=== PATIENT | male | born 1930 | race African-American/Black ===

== ENCOUNTER 2018-04-07 12:43 | Emergency (ER) | payer MEDICARE ==
[~2018-04-07] VITALS: Ht 193 cm; Wt 117.9 kg
[2018-04-07 12:58] VITALS: BP 163/83
--- NOTE | 2018-04-07 14:14 | PHYS DOC ---
Past Medical History Past Medical History: Diabetes-Type II, Heart Disease, Hypertension Past Surgical History: Other Additional Past Surgical Histo: below rt knee amputation, cabbage Alcohol Use: Occasionally Drug Use: None Adult General Chief Complaint Chief Complaint: SHOULDER INJURY HPI HPI 88-year-old male presents to ER with complaints of left shoulder pain and swelling into the left side of his neck. Patient states he was seen at on Monday and had an x-ray of his left shoulder was told the x-ray was normal limits. Pt reports pain has continued so he came to ER for eval. He reports swelling has increased some since his evaluation. Pt is denying any CP/ palpitations or SOA. Pt reports he does have increased pain with ROM of lt upper extremity and neck. Denies numbness/tingling, GILLESPIE, dizziness, or swelling in upper extremities. Pt reports history of CABG �5 vessel. Review of Systems Review of Systems Constitutional: Denies fever or chills [] Eyes: Denies change in visual acuity, redness, or eye pain [] HENT: Denies nasal congestion or sore throat [] Respiratory: Denies cough or shortness of breath [] Cardiovascular: Denies CP/palpitations GI: Denies abdominal pain, nausea, vomiting, bloody stools or diarrhea [] : Denies dysuria or hematuria [] Musculoskeletal: Denies back pain. Reports lt shoulder/lt side neck pain with swelling in lt side neck Integument: Denies rash or skin lesions [] Neurologic: Denies headache, focal weakness or sensory changes. Denies numbness/ tingling Endocrine: Denies polyuria or polydipsia [] All other systems were reviewed and found to be within normal limits, except as documented in this note. Allergies Allergies Allergies Coded Allergies Type Severity Reaction Last Updated Verified Zolpidem Allergy Intermediate 12/23/13 No Physical Exam Physical Exam Constitutional: Well developed, well nourished, no acute distress, non-toxic appearance. [] HENT: Normocephalic, atraumatic, bilateral ears normal, oropharynx moist, no oral exudates, nose normal. [] Eyes: Pupils equal, no nystagmus, conjunctiva normal, no discharge. [] Neck: Normal range of motion, tender lt lateral neck with swelling into lt clavicle area- no crepitus/palp. deformity; no midline cspine tenderness/palp. deformity; supple, no stridor/gross adenopathy. Trachea midline Cardiovascular: Heart rate regular rhythm, no murmur [] Lungs & Thorax: Bilateral breath sounds clear to auscultation- resp. equal/ nonlabored Abdomen: Bowel sounds normal, soft, no tenderness/obese Skin: Warm, dry, no erythema, no rash. [] Back: No tenderness, no CVA tenderness. [] Extremities: No tenderness, no cyanosis, no clubbing, ROM intact, no edema. [] Neurologic: Alert and oriented X 3, normal motor function, normal sensory function, no focal deficits noted. [] Psychologic: Affect normal, judgement normal, mood normal. [] Current Patient Data Vital Signs EKG EKG [] Radiology/Procedures Radiology/Procedures [] Course & Med Decision Making Course & Med Decision Making Pertinent Labs and Imaging studies reviewed. (See chart for details) In-depth conversation had with patient during initial exam as he has complaints of left shoulder pain with swelling into the left lateral side of his neck. Patient had left shoulder x-ray done at with reports of normal limits imaging. Patient reports pain has continued. Patient has significant cardiac history and with increase in swelling in left lateral neck discussed plans for further testing with chest x-ray, EKG, and labs. Following discussion on plan of care also discussed plans for pain medication while in the ER and sling application to support left upper extremity. During discussion patient is cooperative and agreeable with further testing. 1355: This provider heard patient in room 23 becoming loud and stating he feels he is being mistreated. Upon entering room found patient to be sitting in his wheelchair. Patient voiced frustration stating he feels he is being mistreated as he came to the ER for pain control and other tests were ordered. Attempts to discuss plan of care previously discussed this provider with him regarding further testing including chest x-ray, EKG, and labs were met with patient becoming loud and at times rude responses. Patient's arrived bedside and attempts were made to discuss previous discussion and plan of care with her again patient reportedly interrupted and stated he wanted nothing but pain control and wanted to leave. Attempts to discuss options for treatment were met with patient becoming louder again and him requesting to be allowed to leave AMA. Pt left AMA and was not receptive to any further options for treatment or care. At time of AMA discussion on risk and benefits patient had equal nonlabored respirations he had no further swelling in left side of neck from initial exam. He was speaking in full sentences. Patient was nontoxic in appearance. Patient states he plans to see his primary care physician or return to . Dragon Disclaimer Dragon Disclaimer This electronic medical record was generated, in whole or in part, using a voice recognition dictation system. Departure Departure Disposition: 07 AGAINST MEDICAL ADVICE Referrals: XIOMARA KIRKPATRICK MD (PCP) LOUISE STEVEN APRN Apr 07, 2018 14:13
== END 2018-04-07 14:03 | disposition left against medical advice (07) ==
LOC: ER 12:43
DX: M25.512 Pain in left shoulder (principal); I11.9 Hypertensive heart disease without heart failure; E11.9 Type 2 diabetes mellitus without complications; R22.1 Localized swelling, mass and lump, neck; Z95.1 Presence of aortocoronary bypass graft; Z88.8 Allergy status to other drugs, medicaments and biological substances
CPT/HCPCS: 99284

== ENCOUNTER 2019-01-16 16:55 | Observation (INO) | payer MEDICARE ==
[~2019-01-16] VITALS: Ht 193 cm; Wt 111.6 kg
[~2019-01-16 16:55] MED LIST: AMLO5TAB10 PO; ASPI-630 PO; CARV12.511 PO; CEFP100S3 PO; FURO-68 PO; HEPA50003 SQ; HYDR-2761 PO; INSU100I27 SQ; INSU100V2 SQ; POLY17PO29 PO; SENN8.6T99 PO
[2019-01-16] MEDS ORDERED: MORPHINE SULFATE 4 MG/ML VIAL. IV/SQ PRN (18:00)
[2019-01-16] MEDS: IV NORMAL SALINE 1000ML BAG 1,000 ML IV SCH ×2 (18:49→23:12)
--- NOTE | 2019-01-16 18:53 | PHYS DOC ---
Past Medical History Past Medical History: Diabetes-Type II, Heart Disease, Hypertension (KE COMBS APRN) Past Surgical History: Other Additional Past Surgical Histo: below rt knee amputation, cabbage (KE COMBS APRN) Alcohol Use: Occasionally Drug Use: None (KE COMBS APRN) Attending Signature I have participated in the care of this patient and I have reviewed and agree with all pertinent clinical information above including history, exam, and rec ommendations. (JEEVAN ZAMORA MD) Adult General Chief Complaint Chief Complaint: ALTERED MENTAL STATUS HPI HPI Patient is a 88 year old male patient with history of diabetes type 2, hypertension, bilateral below the knee amputations, Bladder Ca, who presents to the ED today from home. Initially patient was in the ED brought in by EMS from home. They report patient was noted to be altered. Patient's came back later, she reports patient was also altered. reports she picked patient from the half-way today and he appeared confused. believes the half-way could have given patient something to make him altered. Patient had a large amount of C. difficile smelling diarrhea in the ED on arrival. Stool was sent to lab. (KE COMBS APRN) Review of Systems Review of Systems Constitutional: Denies fever or chills [] Eyes: Denies change in visual acuity, redness, or eye pain [] HENT: Denies nasal congestion or sore throat [] Respiratory: Denies cough or shortness of breath [] Cardiovascular: No additional information not addressed in HPI [] GI: Denies abdominal pain, nausea, vomiting, bloody stools or diarrhea [] : Denies dysuria or hematuria [] Musculoskeletal: Denies back pain or joint pain [] Integument: Denies rash or skin lesions [] Neurologic: AMS. Denies headache, focal weakness or sensory changes [] All other systems were reviewed and found to be within normal limits, except as documented in this note. (KE COMBS APRN) Current Medications Current Medications Current Medications Medications (Trade) Dose Ordered Sig/Ko Start Time Stop Time Status Last Admin Dose Admin Acetaminophen (Tylenol) 650 mg PRN Q4HRS PRN 01/16/19 19:00 01/17/19 16:33 DC Morphine Sulfate (Morphine Sulfate) 4 mg PRN Q2HR PRN 01/16/19 19:00 01/17/19 16:33 DC 01/16/19 22:13 4 MG Ondansetron HCl (Zofran) 4 mg PRN Q8HRS PRN 01/16/19 19:00 01/17/19 16:33 DC Sodium Chloride 1,000 ml @ 1,000 mls/hr Q1H 01/16/19 18:00 01/16/19 20:35 DC 01/17/19 04:40 610 MLS/HR (JEEVAN ZAMORA MD) Allergies Allergies Allergies Coded Allergies Type Severity Reaction Last Updated Verified zolpidem Allergy Intermediate 01/12/19 Yes Sulfa (Sulfonamide Antibiotics) Adverse Reaction Severe Hives 12/25/18 Yes (JEEVAN ZAMORA MD) Physical Exam Physical Exam Constitutional: Well developed, well nourished, no acute distress, non-toxic appearance. [] HENT: Normocephalic, atraumatic, bilateral external ears normal, oropharynx moist, no oral exudates, nose normal. [] Eyes: PERRLA, EOMI, conjunctiva normal, no discharge. [] Neck: Normal range of motion, no tenderness, supple, no stridor. [] Cardiovascular:Heart rate regular rhythm, no murmur [] Lungs & Thorax: Bilateral breath sounds clear to auscultation [] Abdomen: Bowel sounds normal, soft, no tenderness, no masses, no pulsatile masses. [] Skin: Warm, dry, no erythema, no rash. [] Back: No tenderness, no CVA tenderness. [] Extremities: No tenderness, no cyanosis, no clubbing, ROM intact, no edema Bilateral BKA. Neurologic: Alert and oriented X 2, normal motor function, normal sensory function, no focal deficits noted. Cranial nerves II-XII intact Psychologic: Affect normal, judgement normal, mood normal. [] (KE COMBS APRN) Current Patient Data Vital Signs Vital Signs Date Time Temp Pulse Resp B/P (MAP) Pulse Ox O2 Delivery O2 Flow Rate FiO2 01/16/19 19:00 88 21 95 01/16/19 16:55 99.7 145/46 (79) Room Air 99.7 (JEEVAN ZAMORA MD) Lab Values Laboratory Tests Test 01/16/19 16:59 01/16/19 17:15 01/16/19 18:50 Glucose (Fingerstick) 132 mg/dL (70-99) H Clostridioides difficile Toxin B Gene Negative (Negative) Urine Collection Type Unknown Urine Color Yellow Urine Clarity Clear Urine pH 7.0 Urine Specific Mck[place] 1.015 Urine Protein 100 mg/dL (NEG-TRACE) Urine Glucose (UA) Negative mg/dL (NEG) Urine Ketones (Stick) Negative mg/dL (NEG) Urine Blood Trace (NEG) Urine Nitrite Negative (NEG) Urine Bilirubin Negative (NEG) Urine Urobilinogen Dipstick 0.2 mg/dL (0.2 mg/dL) Urine Leukocyte Esterase Negative (NEG) Urine RBC 11-20 /HPF (0-2) Urine WBC 1-4 /HPF (0-4) Urine Squamous Epithelial Cells Mod /LPF Urine Bacteria 0 /HPF (0-FEW) Urine Hyaline Casts Moderate /HPF Urine Opiates Screen Pos (NEG) Urine Methadone Screen Neg (NEG) Urine Barbiturates Neg (NEG) Urine Phencyclidine Screen Neg (NEG) Urine Amphetamine/Methamphetamine Neg (NEG) Urine Benzodiazepines Screen Pos (NEG) Urine Cocaine Screen Neg (NEG) Urine Cannabinoids Screen Neg (NEG) Urine Ethyl Alcohol Neg (NEG) (JEEVAN ZAMORA MD) EKG EKG Interpreted by Dr. Zamora sinsunevaeh rhythm HR 85 no STEMI[] (KE COMBS APRN) Radiology/Procedures Radiology/Procedures [] (KE COMBS APRN) Course & Med Decision Making Course & Med Decision Making Pertinent Labs and Imaging studies reviewed. (See chart for details) This is a 88-year-old male patient presenting to the ED today to be evaluated f or altered mental status. Patient alert and oriented 2 though we do not know his baseline. He had a large amount of loose stool smelling like C diff which was sent to lab Patient currently refusing CAT scan of the head. Spoke with Dr. Kirkpatrick who accepted patient for admission. (KE COMBS APRN) Dragon Disclaimer Dragon Disclaimer This electronic medical record was generated, in whole or in part, using a voice recognition dictation system. (KE COMBS APRN) Departure Departure Impression: Primary Impression: Altered mental status Disposition: ADMITTED INPATIENT Condition: STABLE Referrals: EDVIN SALAS (PCP) Scripts Calcium Carbonate (CALCIUM) 500 Mg Tab.chew 1 TAB PO TID for low calcium for 30 Days, #90 TAB 0 Refills Prov: XIOMARA KIRKPATRICK MD 01/17/19 Insulin Glargine,Hum.rec.anlog (LANTUS SOLOSTAR) 100 Unit/1 Ml Insuln.pen 10 UNIT SQ QHS for diabetes, #15 ML 3 Refills Prov: XIOMARA KIRKPATRICK MD 01/17/19 Enoxaparin Sodium (ENOXAPARIN SODIUM) 40 Mg/0.4 Ml Disp.syrin 40 MG SQ DAILY for dvt prevention for 14 Days, DIS.SYR Prov: XIOMARA KIRKPATRICK MD 01/17/19 Cefdinir (CEFDINIR) 300 Mg Capsule 300 MG PO BID for uti for 5 Days, #10 CAP Prov: XIOMARA KIRKPATRICK MD 01/17/19 Problem Qualifiers Primary Impression: Altered mental status Altered mental status type: unspecified Qualified Codes: R41.82 - Altered mental status, unspecified KE COMBS APRN Jan 16, 2019 18:53 JEEVAN ZAMORA MD Jan 17, 2019 18:13
[2019-01-16] MEDS ORDERED: ONDANSETRON PF 4 MG/2 ML VIAL. IV PRN (19:00)
[2019-01-16] MEDS ORDERED: MORPHINE SULFATE 4 MG/ML VIAL. IV PRN (19:00)
[2019-01-16] MEDS ORDERED: ACETAMINOPHEN 325 MG TABLET. PO PRN (19:00)
[2019-01-16 19:07] LABS: BILIRUBIN,URINE NEGATIVE (NEG); CLARITY,URINE CLEAR; COLOR,URINE YELLOW; NITRITE,URINE NEGATIVE (NEG); PROTEIN,URINE 100 mg/dL (NEG-TRACE); UROBILINOGEN,URINE 0.2 mg/dL (0.2 mg/dL)
[2019-01-16 19:14] LABS: BARBITURATES NEG (NEG); BENZODIAZEPINES POS (NEG); CANNABINOIDS NEG (NEG); COCAINE NEG (NEG); METHADONE NEG (NEG); OPIATES POS (NEG); PHENCYCLIDINE NEG (NEG)
[2019-01-16 19:15] LABS: AMPHETAMINE/METHAMPHETAMINE NEG (NEG)
[2019-01-16 19:16] LABS: SQUAMOUS EPITHELIAL CELL,UR MOD /LPF
[2019-01-16 19:17] LABS: BACTERIA,URINE 0 /HPF (0-FEW); HYALINE CASTS, URINE MODERATE /HPF
--- NOTE | 2019-01-16 19:40 | RAD ---
PORTABLE CHEST 1V INDICATION: Altered mental status. COMPARISON STUDY: 01/14/2019. FINDINGS: Lungs: Normal lung volume. No pulmonary mass or consolidation. Slightly prominent interstitial markings. Pleura: No pleural effusion or pneumothorax. Heart and Mediastinum: Cardiomegaly. Tortuous atherosclerotic aorta. CABG IMPRESSION: No consolidation. Unchanged slightly prominent interstitial markings. Electronically signed by: Salvador Watson MD (01/16/2019 7:37 PM) [facility]
[2019-01-16 20:49] LABS: BASO % 0 % (0-3); EOS # 0.2 x10^3/uL (0.0-0.7); EOS % 7 % (0-3); HEMATOCRIT 24.9 % (39.0-53.0); LYMPH # 0.6 x10^3/uL (1.0-4.8); LYMPH % 20 % (24-48); MEAN CORPUSCULAR HEMOGLOBIN 27 pg (25-35); MEAN CORPUSCULAR HGB CONC 32 g/dL (31-37); MEAN CORPUSCULAR VOLUME 85 fL (79-100); MONO # 0.4 x10^3/uL (0.0-1.1); MONO % 12 % (0-9); NEUT % 61 % (31-73); PLATELET COUNT 274 x10^3/uL (140-400); RED BLOOD COUNT 2.93 x10^6/uL (4.30-5.70); RED CELL DISTRIBUTION WIDTH 18.4 % (11.5-14.5); WHITE BLOOD COUNT 3.2 x10^3/uL (4.0-11.0)
[2019-01-16 20:55] LABS: INFLUENZA A PATIENT NEGATIVE (NEGATIVE); INFLUENZA B PATIENT NEGATIVE (NEGATIVE)
[2019-01-16 20:57] LABS: PROTHROMBIN TIME PATIENT 14.2 SEC (11.7-14.0)
[2019-01-16 21:00] VITALS: BP 132/50
[2019-01-16 21:06] LABS: ALBUMIN 2.6 g/dL (3.4-5.0); ALBUMIN/GLOBULIN RATIO 0.6 (1.0-1.7); CREATININE 1.9 mg/dL (0.7-1.3); GFR 40.7; MAGNESIUM 2.9 mg/dL (1.8-2.4); TOTAL BILIRUBIN 0.2 mg/dL (0.2-1.0); TOTAL PROTEIN 6.9 g/dL (6.4-8.2)
[2019-01-16 21:11] LABS: CALCIUM 5.8 mg/dL (8.5-10.1)
--- NOTE | 2019-01-16 21:19 | EKG ---
[facility] [address] [place] [address] Test Date: 2019-01-16 Test Time: 18:38:37 Pat Name: FRED DILLON Department: Room: 552 1 Gender: M Technical Specialist: : [id number] Requested By: KE COMBS Order Number: [id number] Reading MD: Misha Wilson Measurements Intervals [place] Rate: 87 P: 36 MT: 226 QRS: 50 QRSD: 98 T: 56 QT: 410 QTc: 494 Interpretive Statements SINUS RHYTHM PROLONGED MT INTERVAL PROLONGED QT ABNORMAL ECG RI6.01 No previous ECG available for comparison Electronically Signed On 01-21-2019 14:53:23 PROFESSOR OF SOCIAL WORK by Misha Wilson
[2019-01-16] MEDS ORDERED: CALCIUM GLUCONATE 2,000 MG in IV DEXTROSE 5% 100ML 100 ML IV ONE ×4 (21:45)
[2019-01-16 23:00] VITALS: BP 154/44
[2019-01-17 03:00] VITALS: BP 130/52
[2019-01-17] MEDS: IV NORMAL SALINE 1000ML BAG 1,000 ML IV SCH (04:40)
[2019-01-17 07:00] VITALS: BP 141/112
[2019-01-17 08:15] LABS: BASO % 1 % (0-3); EOS # 0.2 x10^3/uL (0.0-0.7); EOS % 9 % (0-3); HEMATOCRIT 25.1 % (39.0-53.0); HEMOGLOBIN 7.9 g/dL (13.0-17.5); LYMPH # 0.6 x10^3/uL (1.0-4.8); LYMPH % 23 % (24-48); MEAN CORPUSCULAR HEMOGLOBIN 27 pg (25-35); MEAN CORPUSCULAR HGB CONC 31 g/dL (31-37); MEAN CORPUSCULAR VOLUME 85 fL (79-100); MONO # 0.4 x10^3/uL (0.0-1.1); MONO % 14 % (0-9); NEUT # 1.4 x10^3/uL (1.8-7.7); NEUT % 54 % (31-73); PLATELET COUNT 254 x10^3/uL (140-400); RED BLOOD COUNT 2.94 x10^6/uL (4.30-5.70); RED CELL DISTRIBUTION WIDTH 18.6 % (11.5-14.5); WHITE BLOOD COUNT 2.6 x10^3/uL (4.0-11.0)
[2019-01-17 08:28] LABS: ALBUMIN 2.4 g/dL (3.4-5.0); ALBUMIN/GLOBULIN RATIO 0.5 (1.0-1.7); ALK PHOS 104 U/L (46-116); ALT (SGPT) < 6 U/L (16-63); ANION GAP 12 (6-14); AST (SGOT) 24 U/L (15-37); BLOOD UREA NITROGEN 34 mg/dL (8-26); BUN/CREATININE RATIO 20 (6-20); CARBON DIOXIDE 22 mmol/L (21-32); CHLORIDE 108 mmol/L (98-107); CREATININE 1.7 mg/dL (0.7-1.3); GFR 46.3; GLUCOSE 101 mg/dL (70-99); POTASSIUM 4.6 mmol/L (3.5-5.1); SODIUM 142 mmol/L (136-145); TOTAL BILIRUBIN 0.3 mg/dL (0.2-1.0)
[2019-01-17 08:30] LABS: CALCIUM 5.9 mg/dL (8.5-10.1)
[2019-01-17] MEDS ORDERED: HYDROcodone/APAP 5/325MG 1 TAB TABLET PO PRN (09:15)
[2019-01-17] MEDS ORDERED: CEFDINIR 300 MG CAPSULE PO SCH (09:30)
[2019-01-17] MEDS ORDERED: amLODIPine BESYLATE 5 MG TABLET PO SCH (09:30)
[2019-01-17] MEDS ORDERED: CALCIUM GLUCONATE 2,000 MG in IV DEXTROSE 5% 100ML 100 ML IV ONE (09:30)
[2019-01-17] MEDS ORDERED: CALCIUM GLUCONATE 1,000 MG/10 ML VIAL. IVP ONE (09:30)
[2019-01-17] MEDS ORDERED: SENNOSIDES 8.6 MG TABLET PO SCH (09:30)
[2019-01-17] MEDS: INSULIN LISPRO 300 UNITS/3 ML VIAL. SQ SCH ×2 (09:30→13:24)
[2019-01-17] MEDS ORDERED: ASPIRIN CHEWABLE 81 MG TABLET. PO SCH (09:30)
[2019-01-17] MEDS ORDERED: FUROSEMIDE 40 MG TABLET. PO SCH (09:30)
[2019-01-17] MEDS ORDERED: CARVEDILOL 12.5 MG TABLET. PO SCH (09:30)
[2019-01-17] MEDS ORDERED: ENOXAPARIN 40 MG/0.4 ML SYRINGE. SQ SCH (09:30)
[2019-01-17] MEDS ORDERED: POLYETHYLENE GLYCOL 3350 17 GM PACKET. PO SCH (09:30)
--- NOTE | 2019-01-17 10:10 | PDOC ---
Provider Note Provider Note Pt seen.H&P dictated.#[id number]. XIOMARA KIRKPATRICK MD Jan 17, 2019 10:10
[2019-01-17] MEDS ORDERED: ENOX40DI3 SQ (10:16)
[2019-01-17] MEDS ORDERED: CEFD300C PO (10:16)
[2019-01-17] MEDS ORDERED: INSU100I13 SQ (10:16)
[2019-01-17] MEDS ORDERED: CALC500T54 PO (10:16)
--- NOTE | 2019-01-17 10:20 | SNU/HH DC ---
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, prosthesis LAB ORDERS FOR FOLLOW-UP: cbc,bmp weekly, calcium weekly TREATMENT/EQUIPMENT ORDERS: ADAPTIVE EQUIPMENT NEEDED: Wheelchair Physical Therapy For: Evalulation/Treatment Occupational Therapy For: Evaluation/Treatment DISCHARGE MEDICATIONS: Home Meds Active Scripts Calcium Carbonate (CALCIUM) 500 Mg Tab.chew, 1 TAB PO TID for low calcium for 30 Days, #90 TAB 0 Refills Prov:XIOMARA KIRKPATRICK MD 01/17/19 Insulin Glargine,Hum.rec.anlog (LANTUS SOLOSTAR) 100 Unit/1 Ml Insuln.pen, 10 UNIT SQ QHS for diabetes, #15 ML 3 Refills Prov:XIOMARA KIRKPATRICK MD 01/17/19 Enoxaparin Sodium (ENOXAPARIN SODIUM) 40 Mg/0.4 Ml Disp.syrin, 40 MG SQ DAILY for dvt prevention for 14 Days, DIS.SYR Prov:XIOMARA KIRKPATRICK MD 01/17/19 Cefdinir (CEFDINIR) 300 Mg Capsule, 300 MG PO BID for uti for 5 Days, #10 CAP Prov:XIOMARA KIRKPATRICK MD 01/17/19 Reported Medications Hydrocodone Bit/Acetaminophen (HYDROCODONE-APAP 5-325 ) 1 Tab Tablet, 1 TAB P O PRN Q6HRS PRN for PAIN 12/24/18 Sennosides (SENOKOT) 8.6 Mg Tablet, 8.6 MG PO 1-2tabs po daily for constipation 12/24/18 Polyethylene Glycol 3350 (MIRALAX) 17 Gm Powd.pack, 1 PKT PO DAILY for constipation 12/24/18 Insulin Lispro (Humalog) 100 Unit/1 Ml Vial, 10 UNIT SQ TIDAC for diabetes 12/24/18 Furosemide (LASIX) 40 Mg Tablet, 40 MG PO DAILY for chf-renal disease 12/24/18 Carvedilol (CARVEDILOL ) 12.5 Mg Tablet, 12.5 MG PO BIDWMEALS for CARDIAC 12/24/18 Aspirin (ASPIRIN) 81 Mg Tab.chew, 81 MG PO DAILY for heart health 12/24/18 Amlodipine Besylate (AMLODIPINE BESYLATE) 5 Mg Tablet, 5 MG PO DAILY for htn 12/24/18 Discontinued Reported Medications Insulin Detemir (Levemir Flextouch) 100 Unit/1 Ml Insuln.pen, 30 SQ HS for diabetes 12/24/18 Discontinued Scripts Cefpodoxime Proxetil (CEFPODOXIME PROXETIL) 100 Mg/5 Ml Susp.recon, 1 TAB PO BID for uti for 7 Days, #14 TAB 0 Refills Prov:XIOMARA KIRKPATRICK MD 01/14/19 XIOMARA KIRKPATRICK MD Jan 17, 2019 10:20
--- NOTE | 2019-01-17 10:32 | HP ---
ADMIT DATE: 01/16/2019 LOCATION: 2. REASON FOR ADMISSION TO THE HOSPITAL: Confusion, hypoglycemia, mental status changes. HISTORY OF PRESENT ILLNESS: The patient is an 88-year-old male patient recently discharged from [facility] 2 days ago, went to [facility] and apparently the patient did not want to stay at [facility]. took him home yesterday around 12:00 to 1:00 and then yesterday evening, he went to the toilet. The patient was found confused by the , does not know where he is and was paramedics was called and his sugar was low at 40. The patient was brought to the Emergency Room. The patient was a little bit combative in the Emergency Room, but he did not want any blood drawn or any done and the patient was admitted to the hospital for observation. The patient has a recently diagnosed bladder cancer, had a chemo as well as radiation. He has metastasis to the femur as well as the left clavicle. He finished a course of 5-day radiation treatment on Monday when he went to [facility] and then Monday, went home. OTHER MEDICAL HISTORY: The patient has a history of coronary artery disease, bypass surgery, hypertension, peripheral vascular disease, hyperlipidemia, bladder cancer, peripheral vascular disease. PAST SURGICAL HISTORY: The patient had a heart bypass surgery in 2003, 5-vessel. He had a bypass to the left leg and he had Syme's amputation and a right [id number] amputation and he also had been dealing with bladder cancer. ALLERGIES: SULFA AND AMBIEN. MEDICATIONS AT HOME: The patient is on amlodipine 5 mg daily, aspirin 81 mg daily, Coreg 12.5 twice a day. He was on Vantin for UTI, I believe Proteus. Lasix 40 mg daily, hydrocodone 5/325, insulin 30 units at bedtime, Levemir 10 units of NovoLog with each meal, MiraLax 17 grams daily, senna daily. PERSONAL HISTORY: Denies smoking, alcohol, drug abuse. FAMILY HISTORY: Unremarkable. SOCIAL HISTORY: Lives with his . He has a power wheelchair. He has prosthesis to the right leg. REVIEW OF SYSTEMS: The patient is back to his baseline. Denies any chest pain, is anxious to go home. PHYSICAL EXAMINATION: GENERAL: The patient is not in any distress. The patient making good conversation, does not remember all the details and oriented to time, place and person. VITAL SIGNS: Temperature 97, pulse 91, respirations 20, blood pressure 132/50, 99 on room air. HEENT: Head is atraumatic. Pupils equal. Oral cavity: No congestion. NECK: Supple. CHEST: Scar of heart surgery. CARDIOVASCULAR: S1, S2. LUNGS: Clear. ABDOMEN: Soft, no mass palpable. EXTERNAL GENITALIA: No Baron. RECTAL: Deferred. EXTREMITIES: The patient has a right kqrjw-eeo-yldq amputation for chronic osteo and the patient has a left foot Syme's amputation had a previous bypass to the left leg. NEUROLOGIC: The patient is neurologically intact. Moving all extremities. LABORATORY DATA: Shows a white count of 3, hemoglobin 8, platelets 274. His INR 1.1. Electrolytes show sodium 140, potassium 5, chloride 106, bicarbonate 25, BUN 40, creatinine 1.9, glucose 132, calcium low at 5.8 and last time was 6.0. LFTs were normal. Lactic acid 0.8. Ammonia less than 10. TSH 0.8. Chest x-ray was negative. FINAL IMPRESSION: 1. Confusion, probably secondary to hypoglycemia. 2. Hypocalcemia secondary to recent chemo. He got this medication called Xgeva that apparently causes hypocalcemia, which is going to be transitory. 3. 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 4. Coronary artery disease, history of previous bypass surgery, stable. 5. Hypertension. 6. Diabetes. 7. Hyperlipidemia. 8. Chronic kidney disease, stage 3, stable. PLAN: The patient at this point is waiting for placement. Apparently, the patient was discharged to [facility] but the patient did not like the [facility], so spouse took him home and apparently not able to take care at home. We will send it to another rehab, [facility]. The prefers clinical social work therapist's involvement. In the meantime, while he is in the hospital, give some calcium gluconate to bring the calcium up and discharge on oral calcium. Spoke with the patient's spouse and nurse this morning. XIOMARA KIRKPATRICK MD DR: JONAH/joshua JOB#: [id number] / [id number]
--- NOTE | 2019-01-17 10:53 | NUR ---
COLIN following. Discussed with RN, pt admitted for AMS after discharging home from [facility]. Pt and wanting referral sent to [facility]. COLIN phoned and faxed referral, discharge and scripts to [facility]. Awaiting acceptance decision. Anticipate discharge today. EDUARDO notified. Addendum: 01/17/19 at 1441 by CATRACHITA SHAW Pt accepted at [facility] for SNU. Pt will be transported at 1600 via wheelchair van. EDUARDO notified. Addendum: 01/17/19 at 1557 by CATRACHITA SHAW Family wanting to transport pt to [facility]. [facility] canceled transportation. Family to transport, EDUARDO notified.
[2019-01-17 11:00] VITALS: BP 152/73
[2019-01-17] MEDS ORDERED: CALCIUM CARBONATE 500 MG TABLET PO SCH (13:00)
[2019-01-17 15:00] VITALS: BP 140/57
--- NOTE | 2019-01-17 16:29 | NUR ---
Discharge Note: PT DISCHARGED TO [facility]. PT LEFT FACILITY WITH IN MOTORIZED WHEELCHAIR PER [facility] PERMISSION FOR TO BRING TO FACILITY. PT STABLE AND ALERT UPON DISCHARGE. PT PIV REMOVED FROM L AC AND L HAND WITHOUT COMPLICATIONS, BANDAGE APPLIED. PT WOUND PICTURE TAKEN LESS THAN 24 HOURS PRIOR TO DISCHARGE WITH FOAM DRESSING IN PLACE. REPORT CALLED TO MATEUS NURSE AT [facility]. NO CONCERNS VOICED AT THIS TIME. OUTSIDE THE HOSPITAL DNR FORM SIGNED PRIOR TO DISCHARGE. PT LEFT WITH ALL PERSONAL BELONGINGS. NO CONCERNS VOICED AT TIME OF DISCHARGE. ELIZABETH DILLON [facility] Discharge instructions and discharge home medications reviewed with Patient and a copy given. All questions have been answered and understanding verbalized. Addendum: 01/17/19 at 1632 by MARJORIE GUEVARA RN JAYRO WAS THE NAME OF THE NURSE AT FACILITY RECEIVING REPORT.
[2019-01-17] MEDS ORDERED: INSULIN GLARGINE SYRINGE. SQ SCH ×2 (21:00)
--- NOTE | 2019-01-18 00:18 | PN ---
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 He then developed isolated metastatic disease confined to the left proximal clavicle and right midshaft of the femur. He underwent prophylactic intramedullary rula placement for stabilization and biopsy at in 09/2018. ICD 10 C67.9 C79.51 He then received palliative radiation therapy to the right femur followed by to the left medial clavicle. The following is a summary of treatment here. RIGHT FEMUR DATES OF TREATMENT: 12/24/2018 through 12/28/2018. REGION TREATED: Right femur. TREATMENT TECHNIQUE: AP and PA treatment francis were used. DOSE PER DAY: 4 Gy. NUMBER OF FRACTIONS: 5. TOTAL DOSE: 20 Gy. Treatment was well tolerated. Following this, he then initiated palliative radiation therapy to the left medial clavicle. DATES OF TREATMENT: 12/31/2018 through 01/15/2019. TREATMENT TECHNIQUE: Opposed oblique francis were used with CT-based treatment planning. DOSE PER DAY: 4 Gy. NUMBER FRACTIONS: 5. TOTAL DOSE: 20 Gy. There was an interruption of treatment of his left clavicle from 01/01/2019 through 01/09/2019. During which time, he was dealing with decreasing energy and overall fatigue at home and was essentially immobile as well as had abdominal pain and constipation. He was then admitted here, during which he completed his last 4 fractions of treatment. At the conclusion of treatment, he had significant improvement in his clavicular mass. It was smaller in size and remained without pain. He continued to have some level of modest right thigh pain. At the end of treatment, he will likely continue to convalesce in the hospital. At this time, we plan to see him if feasible in 1 month. Thank you again for allowing us to participate in his care. ICD-10: C67.9, C79.51. RL GRACE MD DR: ZULEMA/joshua JOB#: [id number] / [id number] RIGO Rice MD MTDD
--- NOTE | 2019-01-19 11:36 | PDOC ---
Provider Note Provider Note Discharge summary dictated.#[id number]. XIOMARA KIRKPATRICK MD Jan 19, 2019 11:36
--- NOTE | 2019-01-19 12:01 | DS ---
DATE OF DISCHARGE: 01/17/2019 The patient was admitted on 01/16/2019, discharge on 01/17/2019. The patient was recently discharged from shelter and went home and he was confused. The family called ambulance and brought to the hospital and the patient had low hypoglycemia at the home and was given sugar tablets and sugars improved. The patient was also found to have low calcium related to recent chemo and was given calcium gluconate 2 grams and his condition improved. The patient is discharged to a different senior living at this time. The patient was admitted for a short observation. XIOMARA KIRKPATRICK MD DR: JONAH/joshua JOB#: [id number] / [id number]
== END 2019-01-17 16:33 ==
LOC: ER 16:55 → 5 SOUTH 19:03
PROVIDERS: ADMIT Internal Medicine; ATTEND Internal Medicine
DX: R41.0 Disorientation, unspecified (principal); E83.51 Hypocalcemia; I25.10 Atherosclerotic heart disease of native coronary artery without angina pectoris; E11.649 Type 2 diabetes mellitus with hypoglycemia without coma; E78.5 Hyperlipidemia, unspecified; I12.9 Hypertensive chronic kidney disease with stage 1 through stage 4 chronic kidney disease, or unspecified chronic kidney disease; N18.3 Chronic kidney disease, stage 3 (moderate); C67.9 Malignant neoplasm of bladder, unspecified; C79.51 Secondary malignant neoplasm of bone; I73.9 Peripheral vascular disease, unspecified; Z98.890 Other specified postprocedural states
CPT/HCPCS: 36415; 71045; 80053; 80307; 81001; 82140; 82150; 82553; 82962; 83605; 83690; 83735; 83880; 84145; 84443; 84484; 85025; 85610; 85730; 87040; 87493; 87804; 93005; 96361; 96365; 96366; 96372; 96375; 99284; G0378; G0379; J0610; J1650; J1815; J2270; J7030

== ENCOUNTER 2019-03-25 11:35 | Emergency (ER) | payer MEDICARE ==
[~2019-03-25 11:35] MED LIST changes: +CALC500T54 PO; +CEFD300C PO; +ENOX40DI3 SQ; +INSU100I13 SQ
--- NOTE | 2019-03-25 11:49 | PHYS DOC ---
Past Medical History Past Medical History: Diabetes-Type II, Heart Disease, Hypertension, Other Additional Past Medical Histor: stage 4 bone cancer Past Surgical History: Other Additional Past Surgical Histo: below rt knee amputation, cabbage Alcohol Use: Occasionally Drug Use: None Adult General Chief Complaint Chief Complaint: CPR/FULL ARREST HPI HPI Patient is a 88 year old with history of hypertension, dyslipidemia, respiratory distress and a stage IV bone cancer who brought in by EMS with cardiorespiratory arrest. Patient reported that he was choked while taking his pills and became unresponsive. EMS found patient without cardiac or respiratory activity and started CPR with chest compression and talking LMA for 30 minutes prior to arrival to ER. Patient had asystole and no pulse without CPR at arrival to ER. Patient had DNR order. CPR was stopped at 1138. Review of Systems Review of Systems CPR in progress, unable to obtain. Allergies Allergies Allergies Coded Allergies Type Severity Reaction Last Updated Verified zolpidem Allergy Intermediate 01/12/19 Yes Sulfa (Sulfonamide Antibiotics) Adverse Reaction Severe Hives 12/25/18 Yes Physical Exam Physical Exam Constitutional: Unresponsive CPR in progress HENT: Atraumatic. Eyes: Fixed dilated pupil. Neck: rigid neck Cardiovascular: CPR in progress, no spontaneous t cardiac activity without CPR Lungs & Thorax: No spontaneous respiration. Abdomen:Atraumatic. Extremities: Atraumatic, no spontaneous pulses without CPR Neurologic: Unresponsive. Psychologic: Unresponsive. EKG EKG [] Radiology/Procedures Radiology/Procedures [] Course & Med Decision Making Course & Med Decision Making Please see CODE BLUE report for CPR. Evaluation of patient in ER showed 88-year-old male patient with metastatic bone cancer brought in with CPR in progress for more than 30 minutes. Patient had a DNR order and CPR was stopped at 1138. Dragon Disclaimer Dragon Disclaimer This electronic medical record was generated, in whole or in part, using a voice recognition dictation system. Departure Departure Impression: Primary Impression: Cardiorespiratory arrest Disposition: 20 (At 1138) Condition: Referrals: EDVIN SALAS (PCP) SUJATA AMAYA MD Mar 25, 2019 11:49
[2019-03-25] MEDS ORDERED: EPINEPHrine SYRINGE 1 MG/10 ML SYRINGE ONE (12:00)
== END 2019-03-25 13:41 | disposition expired ==
LOC: ER 11:35
DX: I46.9 Cardiac arrest, cause unspecified (principal); E11.9 Type 2 diabetes mellitus without complications; Z85.830 Personal history of malignant neoplasm of bone; Z88.2 Allergy status to sulfonamides; Z88.8 Allergy status to other drugs, medicaments and biological substances
CPT/HCPCS: 92950; 99285; J0171